=== PATIENT | female | born 1950 | race Caucasian/White ===

== ENCOUNTER → 2017-02-09 | Outpatient (CLI) | payer MEDICARE, BC ==
[2017-02-09 11:36] LABS: ALT 36 U/L (9-52); AST 29 U/L (14-36); Cholesterol 160 mg/dL (<200); HDL Cholesterol 50 mg/dL (40-60); Triglycerides 165 mg/dL (<150)
== END | disposition home or self-care (01) ==
LOC: LABWHC1 10:19
PROVIDERS: ATTEND Family Medicine
DX: E78.2 Mixed hyperlipidemia (principal)
CPT/HCPCS: 36415; 80061; 84450; 84460

== ENCOUNTER → 2017-08-03 | Outpatient (CLI) | payer MEDICARE, BC ==
[2017-08-03 10:51] LABS: ALT 50 U/L (9-52); AST 28 U/L (14-36); Alkaline Phosphatase 83 U/L (38-126); Anion Gap 10 mmol/L; Blood Urea Nitrogen 19 mg/dL (7-17); Calcium 10.9 mg/dL (8.4-10.2); Carbon Dioxide 27 mmol/L (22-30); Chloride 104 mmol/L (98-107); Glucose 102 mg/dL (74-99); Non-African American GFR(MDRD) 55 (>60 ml/min/1.73 sqM); Sodium 141 mmol/L (137-145); Total Bilirubin 0.8 mg/dL (0.2-1.3); Total Protein 7.6 g/dL (6.3-8.2)
[2017-08-03 10:59] LABS: Potassium 5.1 mmol/L (3.5-5.1)
== END | disposition home or self-care (01) ==
LOC: LABWHC1 10:02
PROVIDERS: ATTEND Internal Medicine
DX: E04.9 Nontoxic goiter, unspecified (principal); E21.0 Primary hyperparathyroidism
CPT/HCPCS: 36415; 80053; 84443

== ENCOUNTER → 2018-02-14 | Outpatient (CLI) | payer MEDICARE, BC ==
[2018-02-14 10:21] LABS: Calcium 10.9 mg/dL (8.4-10.2)
== END | disposition home or self-care (01) ==
LOC: LABWHC1 09:26
PROVIDERS: ATTEND Internal Medicine
DX: E78.2 Mixed hyperlipidemia (principal); E21.0 Primary hyperparathyroidism
CPT/HCPCS: 36415; 80061; 82310; 83970; 84450; 84460

== ENCOUNTER → 2018-08-01 | Outpatient (CLI) | payer MEDICARE, BC ==
[2018-08-01 17:11] LABS: Vitamin D 25 Hydroxy 31.7 ng/mL (30.0-100.0)
[2018-08-01 17:43] LABS: Parathyroid Hormone Intact 95.9 pg/mL (14.0-72.0)
== END | disposition home or self-care (01) ==
LOC: LABWHC1 09:14
PROVIDERS: ATTEND Internal Medicine
DX: E21.0 Primary hyperparathyroidism (principal)
CPT/HCPCS: 36415; 82306; 82310; 83970

== ENCOUNTER → 2018-08-24 | Outpatient (CLI) | payer MEDICARE, BC ==
--- NOTE | 2018-08-24 16:51 | BD ---
EXAMINATION TYPE: Axial Bone Density DATE OF EXAM: 08/24/2018 COMPARISON: 2016 CLINICAL HISTORY: E 21.0, hyperparathyroidism Height: 5'5 1/2 Weight: 250 FRAX RISK QUESTIONS: History of Fracture in Adulthood: Y Secondary Osteoporosis: RISK FACTORS HISTORY OF: Active: N Postmenopausal woman: y Hyperparathyroidism: y MEDICATIONS: Additional Medications: blood pressure, cholesterol Additional History: EXAM MEASUREMENTS: Bone mineral densitometry was performed using the [email or web address] System. Bone mineral density as measured about the Lumbar spine is: ----- L1-L4(G/cm2): 1.327 T Score Values are as follows: ----- L2: 1.2 ----- L3: 1.7 ----- L4: 2.2 ----- L1-L4:1.2 Bone mineral density has: Increased 0.1since study of: 08/03/2016 Bone mineral density about the R hip (g/cm2): 0.932 Bone mineral density about the L hip (g/cm2): 0.950 T Score values are as follows: -----R Neck: -0.8 -----L Neck: -0.7 -----R Total: 0.5 -----L Total: 1.0 Bone mineral density has: Decreased -1.5ince study of: 08/03/2016 IMPRESSION: Normal (Values between +1 and -1 indicate normal bone mass). Consider repeating this study in 5 year s or sooner if there is some new clinical indication. NOTE: T-SCORE=SD OF THE YOUNG ADULT MEAN.
--- NOTE | 2018-08-24 16:52 | BD ---
EXAMINATION TYPE: Axial Bone Density DATE OF EXAM: 08/24/2018 COMPARISON: NONE CLINICAL HISTORY: hyperparathyroidism, E 21.0 Height: 5'5 Weight: 250 FRAX RISK QUESTIONS: History of Fracture in Adulthood: y Secondary Osteoporosis: RISK FACTORS HISTORY OF: If Premenopausal, do you have irregular periods: Hyperparathyroidism: y MEDICATIONS: Additional Medications: high blood pressure, cholesterol Additional History: EXAM MEASUREMENTS: Bone mineral densitometry was performed using the [employer] System. Bone mineral density about the L Wrist (g/cm2): 0.758 T Score values are as follows: -----Dist. R+U: 1.5 -----Prox. R+U: 1.1 -----Radius total: 1.4 IMPRESSION: Normal (Values between +1 and -1 indicate normal bone mass). Consider repeating this study in 5 year s or sooner if there is some new clinical indication. NOTE: T-SCORE=SD OF THE YOUNG ADULT MEAN.
== END | disposition home or self-care (01) ==
LOC: RADBDWWP 13:09
PROVIDERS: ATTEND Internal Medicine
DX: E21.0 Primary hyperparathyroidism (principal)
CPT/HCPCS: 77080; 77081

== ENCOUNTER → 2018-08-29 | Outpatient (CLI) | payer MEDICARE, BC ==
[2018-08-29 10:59] LABS: HGB 14.9 gm/dL (11.4-16.0); MCH 30.5 pg (25.0-35.0); MCHC 33.1 g/dL (31.0-37.0); MCV 92.3 fL (80.0-100.0); Mean Platelet Volume 7.5; Platelet Count 269 k/uL (150-450); RBC 4.87 m/uL (3.80-5.40); RDW 13.6 % (11.5-15.5); WBC 6.6 k/uL (3.8-10.6)
[2018-08-29 18:18] LABS: Albumin 4.5 g/dL (3.80-4.90); Albumin/Globulin Ratio 1.96 (1.20-2.10); Anion Gap 1.4 mmol/L (4.00-12.00); Calcium 10.4 mg/dL (8.7-10.3); Carbon Dioxide 29.6 mmol/L (21.6-31.8); Globulin 2.3 g/dL (2.1-3.7); LDL Cholesterol,Calculated 74.8 mg/dL (0.0-131.0); Potassium 4.9 mmol/L (3.5-5.5); Total Bilirubin 0.8 mg/dL (0.3-1.2); Total Protein 6.8 g/dL (6.2-8.2); VLDL Calculation 28.2 mg/dL (5.00-40.00)
== END | disposition home or self-care (01) ==
LOC: LABWHC1 09:37
PROVIDERS: ATTEND Family Medicine
DX: Z00.00 Encounter for general adult medical examination without abnormal findings (principal)
CPT/HCPCS: 36415; 80053; 80061; 84443; 85027

== ENCOUNTER → 2018-10-19 | Outpatient (CLI) | payer MEDICARE, BC ==
--- NOTE | 2018-10-19 13:00 | MM ---
Reason for exam: screening (asymptomatic). Last mammogram was performed 1 year and 1 month ago. History: Patient is postmenopausal and is nulliparous. Took hormonal contraceptives for 10 years beginning at age 30. Physical Findings: A clinical breast exam by your physician is recommended on an annual basis and results should be correlated with mammographic findings. MG Screening Mammo w CAD Bilateral CC and MLO view(s) were taken. XCCL view(s) were taken of the right breast. Prior study comparison: October 01, 2017, bilateral MG screening mammo w CAD. October 16, 2015, bilateral MG screening mammo w CAD. The breast tissue is heterogeneously dense. This may lower the sensitivity of mammography. There are benign appearing round calcifications bilaterally. There is chronic nodularity in the right breast. There is no discrete abnormality. ASSESSMENT: Benign, BI-RAD 2 RECOMMENDATION: Routine screening mammogram of both breasts in 1 year.
== END | disposition home or self-care (01) ==
LOC: RADMAMWWP 07:06
PROVIDERS: ATTEND Obstetrics & Gynecology
DX: Z12.31 Encounter for screening mammogram for malignant neoplasm of breast (principal)
CPT/HCPCS: 77067

== ENCOUNTER → 2019-02-06 | Outpatient (CLI) | payer MEDICARE, BC ==
[2019-02-06 16:32] LABS: Albumin 4.4 g/dL (3.80-4.90); Anion Gap 9.5 mmol/L (4.00-12.00); Calcium 10.3 mg/dL (8.7-10.3); Carbon Dioxide 26.5 mmol/L (21.6-31.8); Globulin 2.2 g/dL (1.6-3.3); LDL Cholesterol,Calculated 78.2 mg/dL (0.0-131.0); Potassium 4.4 mmol/L (3.5-5.5); Total Bilirubin 0.7 mg/dL (0.2-1.2); Total Protein 6.6 g/dL (6.2-8.2); VLDL Calculation 26.8 mg/dL (5.00-40.00)
== END | disposition home or self-care (01) ==
LOC: LABWHC1 06:44
PROVIDERS: ATTEND Internal Medicine
DX: E04.9 Nontoxic goiter, unspecified (principal); E55.9 Vitamin D deficiency, unspecified; E21.0 Primary hyperparathyroidism; E78.2 Mixed hyperlipidemia
CPT/HCPCS: 36415; 80053; 80061; 82306; 84443

== ENCOUNTER → 2019-08-30 | Outpatient (CLI) | payer MEDICARE, BC ==
[2019-08-30 10:31] LABS: HCT 44.8 % (34.0-46.0); HGB 14.5 gm/dL (11.4-16.0); MCH 29.9 pg (25.0-35.0); MCHC 32.4 g/dL (31.0-37.0); MCV 92.4 fL (80.0-100.0); Mean Platelet Volume 6.6; Platelet Count 280 k/uL (150-450); RBC 4.85 m/uL (3.80-5.40); RDW 13.3 % (11.5-15.5)
[2019-08-30 16:14] LABS: African American GFR (CKD) 66.6 (60.0-200.0); Albumin 4.5 g/dL (3.80-4.90); Albumin/Globulin Ratio 2.14 (1.60-3.17); Anion Gap 1.9 mmol/L (4.00-12.00); Calcium 10.2 mg/dL (8.7-10.3); Carbon Dioxide 33.1 mmol/L (21.6-31.8); Chol/HDL Ratio 3.55; Globulin 2.1 g/dL (1.6-3.3); LDL Cholesterol,Calculated 78.6 mg/dL (0.0-131.0); Potassium 4.3 mmol/L (3.5-5.5); Total Bilirubin 0.8 mg/dL (0.2-1.2); Total Protein 6.6 g/dL (6.2-8.2); VLDL Calculation 28.4 mg/dL (5.00-40.00)
[2019-08-31 20:02] LABS: Hemoglobin A1C 5.8 % (4.0-6.0)
== END | disposition home or self-care (01) ==
LOC: LABWHC1 09:12
PROVIDERS: ATTEND Family Medicine
DX: Z00.00 Encounter for general adult medical examination without abnormal findings (principal); I10 Essential (primary) hypertension; E83.52 Hypercalcemia; E78.2 Mixed hyperlipidemia
CPT/HCPCS: 36415; 80053; 80061; 83036; 84443; 85027

== ENCOUNTER → 2019-11-03 | Outpatient (CLI) | payer MEDICARE, BC ==
--- NOTE | 2019-11-06 12:09 | MM ---
Reason for exam: screening (asymptomatic). Last mammogram was performed 1 year ago. History: Patient is postmenopausal and is nulliparous. Took hormonal contraceptives for 10 years beginning at age 30. Physical Findings: A clinical breast exam by your physician is recommended on an annual basis and results should be correlated with mammographic findings. MG Screening Mammo w CAD Bilateral CC and MLO view(s) were taken. Prior study comparison: October 19, 2018, bilateral MG screening mammo w CAD. October 01, 2017, bilateral MG screening mammo w CAD. The breast tissue is heterogeneously dense. This may lower the sensitivity of mammography. No suspicious abnormality on the left breast. Right upper outer quadrant focal asymmetry at middle depth. ASSESSMENT: Incomplete: need additional imaging evaluation, BI-RAD 0 RECOMMENDATION: Special view mammogram of the right breast. (3D) If lesion persists on supplemental views, image directed ultrasound is recommended. [facility] will attempt to contact patient to return for supplemental views and ultrasound if indicated.
== END | disposition home or self-care (01) ==
LOC: RADMAMWWP 09:24
PROVIDERS: ATTEND Obstetrics & Gynecology
DX: Z12.31 Encounter for screening mammogram for malignant neoplasm of breast (principal); R92.8 Other abnormal and inconclusive findings on diagnostic imaging of breast
CPT/HCPCS: 77067

== ENCOUNTER → 2019-11-15 | Outpatient (CLI) | payer MEDICARE, BC ==
--- NOTE | 2019-11-16 13:24 | MM ---
Reason for exam: additional evaluation requested from abnormal screening. Last mammogram was performed less than 1 month ago. History: Patient is postmenopausal and is nulliparous. Took hormonal contraceptives for 10 years beginning at age 30. Physical Findings: Nurse did not find any significant physical abnormalities on exam. MG 3D Work Up W/Cad RT Spot compression CC and spot compression MLO view(s) were taken of the right breast. Prior study comparison: November 03, 2019, bilateral MG screening mammo w CAD. October 19, 2018, bilateral MG screening mammo w CAD. The breast tissue is heterogeneously dense. This may lower the sensitivity of mammography. Finding: There is a suspicious, equal, indistinct architectural distortion located 8 cm from the nipple in the 12 o'clock upper quadrant, middle position of the right breast. New finding since November 03, 2019 and October 19, 2018. These results were verbally communicated with the patient and result sheet given to the patient on 11/15/19. ASSESSMENT: Incomplete: need additional imaging evaluation, BI-RAD 0 RECOMMENDATION: Ultrasound and ultrasound core biopsy of the right breast. (right breast inferior) (3D tomosynthesis stereotactic advised if ultrasound not possible) Called Dr. Lao's office with mammographic findings and has scheduled an appointment for the patient for 12/14/19 at 11:[address] Shabazz. Biopsy scheduled for 11/27/19 at 12:20. PRELIMINARY REPORT CALLED AND FAXED TO DR. SHABAZZ ON 11/16/19.
--- NOTE | 2019-11-16 13:26 | USB ---
Reason for exam: additional evaluation requested from abnormal screening. History: Patient is postmenopausal and is nulliparous. Took hormonal contraceptives for 10 years beginning at age 30. US Breast Workup Limited RT Right limited breast ultrasound including focal area of concern, retroareolar and axilla demonstrates a 0.3 x 0.4 x 0.2cm oval, cystic lesion at 10 o'clock, a 0.6 x 0.4 x 0.4cm oval, node at 10 o'clock, a 0.9 x 0.9 x 0.9cm irregular, lobular, hypoechoic lesion at 11 o'clock and a 1.4 x 2.2 x 1.0cm oval axilla node. These results were verbally communicated with the patient and result sheet given to the patient on 11/15/19. ASSESSMENT: Suspicious, BI-RAD 4 RECOMMENDATION: Ultrasound core biopsy of the right breast. (right breast inferior) (3D tomosynthesis stereotactic advised if ultrasound not possible) Called Dr. Lao's office with mammographic findings and has scheduled an appointment for the patient for 12/14/19 at 11:[address] Shabazz. Biopsy scheduled for 11/27/19 at 12:20. PRELIMINARY REPORT CALLED AND FAXED TO DR. SHABAZZ ON 11/16/19.
== END | disposition home or self-care (01) ==
LOC: RADMAMWWP 13:21
PROVIDERS: ATTEND Obstetrics & Gynecology
DX: R92.8 Other abnormal and inconclusive findings on diagnostic imaging of breast (principal)
CPT/HCPCS: 77065; 76642; G0279; 77061

== ENCOUNTER → 2019-11-27 | Day surgery (SDC) | payer MEDICARE, BC ==
[2019-11-27 11:47] VITALS: TEMP 98.1
[2019-11-27 12:37] VITALS: BP 141/81; PULSE 82; RESP 12
--- NOTE | 2019-11-27 13:14 | USB ---
EXAMINATION TYPE: US biopsy breast VAD RT, MG diagnostic mammo RT wo CAD DATE OF EXAM: 11/27/2019 CLINICAL HISTORY: R92.8 Abn mammogram. TECHNIQUE: Ultrasound guided core biopsy of right breast. COMPARISON: Right breast ultrasound dated 11/05/2019 FINDINGS: The procedure of ultrasound guided core biopsy was explained to the patient. Benefits, alternatives, and risks were discussed. An informed consent was then obtained. Preprocedural timeout was performed. The patient was placed in supine positioning for imaging and for the procedure. The overlying skin was prepped and draped in usual sterile fashion. 10 cc of 1% lidocaine was used as anesthetic into the skin and subcutaneous tissue up to a 0.9 cm mass at the 9:00 position in the right breast. Under ultrasound guidance, a 12-gauge vacuum assisted biopsy gun device was used to obtain 4 core samples. Following this, a ribbon-shaped biopsy marker was left in the mass. Postprocedure mammogram demonstrates the biopsy marker placed 1.6 cm anterior to the mammographic suspicious mass. The patient tolerated the procedure well without any immediate complication. The patient was kept in the radiology department for short stay after the procedure and then discharged home in stable condition. IMPRESSION: Successful, uncomplicated ultrasound guided core biopsy of a 0.9 cm mass at the 11:00 position in the right breast, full pathology results to follow. Of note the biopsy marker is located 1.6 cm anterior to the suspicious mammographic mass. If biopsy results are positive, 2 site needle localization could be considered for both the mammographic mass and the biopsy marker. If biopsy results are negative, this would be discordant and stereotactic guided biopsy would be recommended of the mammographic mass. Pathology Results: Malignant RIGHT BREAST LESION, NEEDLE CORE BIOPSIES: Adenocarcinoma, [place] grade 1, focal ALH see note. Recommendation Surgical consult of the right breast. KIERAN
== END ==
LOC: RADUSWWP 11:10
PROVIDERS: ATTEND Surgery
DX: C50.211 Malignant neoplasm of upper-inner quadrant of right female breast (principal); R92.8 Other abnormal and inconclusive findings on diagnostic imaging of breast
CPT/HCPCS: 19083; 88305; 88342; 88341; 77065; A4648; J2001

== ENCOUNTER → 2019-12-18 | Day surgery (SDC) | payer MEDICARE, BC ==
[2019-12-18 12:13] VITALS: BP 136/79; PULSE 77; RESP 16; TEMP 97.7
--- NOTE | 2019-12-18 19:09 | USB ---
EXAMINATION TYPE: US discontinued breast bx RT DATE OF EXAM: 12/18/2019 COMPARISON: 11/27/2019 and 11/15/2019 HISTORY: 69-year-old female with biopsy-proven right breast cancer referred for assessment of right a xillary lymph node. TECHNIQUE: Targeted ultrasound of the right axilla. FINDINGS: The right axilla was scanned. Elongated 2.1 x 1.1 x 0.4 cm lymph node (1.1 cm short axis, prominent b ut not enlarged) is identified. Despite slight lobulations, the cortex remains thin measuring up to 1 .9 mm thick. There is no soft tissue replacement of the fatty hilum. Biopsy is deferred. IMPRESSION: Prominent but nonenlarged right axillary lymph node, 1.1 cm short axis. Biopsy is deferred. BI-RADS 6, biopsy-proven malignancy RECOMMENDATION: 1. Appropriate surgical management for biopsy proven right breast cancer.
== END ==
LOC: RADUSWWP 11:30
PROVIDERS: ATTEND Surgery
DX: C50.911 Malignant neoplasm of unspecified site of right female breast (principal); Z53.8 Procedure and treatment not carried out for other reasons

== ENCOUNTER 2020-01-04 10:14 | Day surgery (SDC) | payer MEDICARE, BC ==
[2020-01-02 13:56] VITALS: BMI 42.9
[2020-01-04 15:50] VITALS: TEMP 97
[2020-01-04 16:14] VITALS: RESP 16
[2020-01-04 16:47] VITALS: BP 108/68; PULSE 88
== END 2020-01-04 16:57 | disposition home or self-care (01) ==
LOC: OR 10:14
PROVIDERS: ATTEND Surgery
DX: C50.911 Malignant neoplasm of unspecified site of right female breast (principal); E78.5 Hyperlipidemia, unspecified; I10 Essential (primary) hypertension; K21.9 Gastro-esophageal reflux disease without esophagitis; Z17.0 Estrogen receptor positive status [ER+]; Z79.899 Other long term (current) drug therapy; Z98.890 Other specified postprocedural states; Z79.1 Long term (current) use of non-steroidal anti-inflammatories (NSAID); Z79.82 Long term (current) use of aspirin; Z90.49 Acquired absence of other specified parts of digestive tract; Z90.89 Acquired absence of other organs; Z87.891 Personal history of nicotine dependence; Z91.09 Other allergy status, other than to drugs and biological substances; Z82.49 Family history of ischemic heart disease and other diseases of the circulatory system; Z82.5 Family history of asthma and other chronic lower respiratory diseases
CPT/HCPCS: 19301; 88342; 88307; 88341; 76098; 19281; 38792; 38525; J2250; J1644; J1100; J2405; J0690; J2001; J3010; J0330; J2704

== ENCOUNTER → 2020-04-25 | Outpatient (CLI) | payer MEDICARE, BC ==
[2020-04-25 12:06] LABS: Hemoglobin A1C 5.6 % (4.0-6.0)
== END | disposition home or self-care (01) ==
LOC: LABWHC1 07:13
PROVIDERS: ATTEND Family Medicine
DX: E78.2 Mixed hyperlipidemia (principal); R73.01 Impaired fasting glucose
CPT/HCPCS: 36415; 80061; 82947; 83036; 84450; 84460

== ENCOUNTER → 2020-08-29 | Outpatient (CLI) | payer MEDICARE, BC ==
[2020-08-29 08:04] LABS: Basophils # (A) 0.1 k/uL (0-0.2); Basophils % (A) 1 %; Eosinophils # (A) 0.2 k/uL (0-0.7); Eosinophils % (A) 3 %; HCT 47.7 % (34.0-46.0); HGB 15.1 gm/dL (11.4-16.0); Lymphocytes # (A) 1.3 k/uL (1.0-4.8); Lymphocytes % (A) 19 %; MCH 30.7 pg (25.0-35.0); MCHC 31.6 g/dL (31.0-37.0); Monocytes # (A) 0.4 k/uL (0-1.0); Monocytes % (A) 6 %; Neutrophils # (A) 4.5 k/uL (1.3-7.7); Neutrophils % (A) 67 %; Platelet Count 272 k/uL (150-450); RBC 4.91 m/uL (3.80-5.40); RDW 13.3 % (11.5-15.5); WBC 6.7 k/uL (3.8-10.6)
[2020-08-29 11:20] LABS: African American GFR (CKD) 66.1 (60.0-200.0); Albumin 4.4 g/dL (3.80-4.90); Albumin/Globulin Ratio 1.83 (1.60-3.17); Anion Gap 6.9 mmol/L (4.00-12.00); Calcium 11.1 mg/dL (8.7-10.3); Carbon Dioxide 30.1 mmol/L (21.6-31.8); Chol/HDL Ratio 3.39; Globulin 2.4 g/dL (1.6-3.3); Potassium 5.1 mmol/L (3.5-5.5); Total Bilirubin 0.8 mg/dL (0.2-1.2); Total Protein 6.8 g/dL (6.2-8.2)
[2020-08-29 15:17] LABS: Hemoglobin A1C 5.4 % (4.0-6.0)
== END | disposition home or self-care (01) ==
LOC: LABWHC1 07:03
PROVIDERS: ATTEND Family Medicine
DX: Z00.00 Encounter for general adult medical examination without abnormal findings (principal); I10 Essential (primary) hypertension; E78.2 Mixed hyperlipidemia; R73.01 Impaired fasting glucose
CPT/HCPCS: 36415; 80053; 80061; 83036; 84443; 85025; 85027

== ENCOUNTER → 2020-10-10 | Outpatient (CLI) | payer MEDICARE, BC ==
--- NOTE | 2020-10-10 16:20 | BD ---
EXAMINATION TYPE: Axial Bone Density DATE OF EXAM: 10/10/2020 COMPARISON: NONE CLINICAL HISTORY: Height: 5 FT 6 IN Weight: 234 FRAX RISK QUESTIONS: Alcohol (3 or more units per day): NO Family History (Parent hip fracture): NO Glucocorticoids (More than 3mos): NO (Ex: prednisone, prednisolone, methylprednisolone, dexamethasone, and hydrocortisone). History of Fracture in Adulthood: NO Secondary Osteoporosis: 1. Type 1 Diabetes: NO 2. Hyperthyroidism: NO 3. Menopause before 45: NO 4. Malnutrition: NO 5. Chronic liver disease: NO Rheumatoid Arthritis: NO Current Tobacco Use: NO RISK FACTORS HISTORY OF: Family History of Osteoporosis: NO Active: NO Diet low in dairy products/other sources of calcium: NO Postmenopausal woman: BETWEEN AGE 45-50 Take estrogen and/or progesterone medications: BRIEF PERIOD OF TIME UNSURE WHEN Lost more than 2 inches in height since high school: NO MEDICATIONS: Additional Medications: ARIMEDEX, LIPITOR, PRINIVIL, NORVASC, ASPIRIN, VIT D3, Additional History: BREAST CANCER RADIATION 2019 EXAM MEASUREMENTS: Bone mineral densitometry was performed using the [employer] System. Bone mineral density as measured about the Lumbar spine is: ----- L1-L4(G/cm2): 1.305 T Score Values are as follows: ----- L2: 1.0 ----- L3: 1.5 ----- L4: 1.8 ----- L1-L4: 1.0 Bone mineral density has: DECREASED -1.9 % since study of: 2017 Bone mineral density about the R hip (g/cm2): 0.874 Bone mineral density about the L hip (g/cm2): 0.914 T Score values are as follows: -----R Neck: -1.2 -----L Neck: -0.9 -----R Total: -0.1 -----L Total: 0.5 Bone mineral density has: DECREASED -6.3 % since study of: 2017 Bone mineral density about the L Wrist (g/cm2): 0.667 T Score values are as follows: -----Dist. R+U: 0.0 -----Prox. R+U: -0.2 -----Radius total: -0.1 Bone mineral density has: DECREASED -11.6 % since study of: 2018 IMPRESSION: Osteopenia (T Score between -2.5 and -1). There is slightly increased risk of fracture and the patient may be considered for treatment. Re-Screen 2-5 years. NOTE: T-SCORE=SD OF THE YOUNG ADULT MEAN.
== END | disposition home or self-care (01) ==
LOC: RADBDWWP 08:30
PROVIDERS: ATTEND Internal Medicine
DX: C50.811 Malignant neoplasm of overlapping sites of right female breast (principal); M85.80 Other specified disorders of bone density and structure, unspecified site; E21.3 Hyperparathyroidism, unspecified; Z79.890 Hormone replacement therapy
CPT/HCPCS: 77080

== ENCOUNTER → 2020-10-24 | Outpatient (CLI) | payer MEDICARE, BC ==
[2020-10-24 09:26] LABS: Ionized Calcium 5.8 mg/dL (4.5-5.3)
--- NOTE | 2020-10-29 11:55 | US ---
EXAMINATION TYPE: US thyroid st tissue head/neck DATE OF EXAM: 10/26/2020 COMPARISON: NONE CLINICAL HISTORY: E04.9 Thyroid goiter. thy nodules GLAND SIZE: Right Lobe: 5.1 x 1.6 x 1.7 cm Overall Parenchyma: heterogenous Left Lobe: 5.1 x 1.4 x 1.9 cm Overall Parenchyma: heterogeneous Isthmus Thickness: 0.3 cm NODULES RIGHT: # of nodules measured on right: 3 1. .7 X .3 x .6 cm mixed cystic and solid, hypoechoic nodule, which is wider than tall, with smooth margins, without echogenic foci. Prior size: .7 x .3 x .5 cm 2. .7 X .8 x .5 cm solid or almost completely solid, hypoechoic nodule, which is wider than tall, w ith ill-defined margins, without echogenic foci. Prior size: .5 x .3 x .4 cm 3. 1.0 X .4 x 1.5 cm solid or almost completely solid, hypoechoic nodule, which is wider than tall, with smooth margins, without echogenic foci. Prior size: 1.2 x .4 x .8 cm LEFT: # of nodules measured on left: 2 1. 1.0 X 1.0 x .5 cm cystic or almost completely cystic, anechoic nodule, which is wider than tall, with smooth margins, without echogenic foci. Prior size: .9 x .6 x .8 cm 2. .5 X .3 x .6 cm solid or almost completely solid, hypoechoic nodule, which is wider than tall, w ith smooth margins, without echogenic foci. Prior size: .5 x .3 x .5 cm ISTHMUS: # of nodules measured in the isthmus: 0 Bilateral neck scanned, no evidence of lymphadenopathy. IMPRESSION: Dominant nodule in the right lobe of the gland has decreased in size compared to prior exam, addition al follow-up to assess for stability may be performed 2017 ACR TI-RADS LEVEL: 3 *Highest TI-RADS level nodule reported
== END | disposition home or self-care (01) ==
LOC: RADUSWWP 08:13
PROVIDERS: ATTEND Internal Medicine
DX: E04.2 Nontoxic multinodular goiter (principal); E21.0 Primary hyperparathyroidism
CPT/HCPCS: 76536; 82306; 82330; 82652; 83970

== ENCOUNTER → 2020-11-06 | Outpatient (CLI) | payer MEDICARE, BC ==
--- NOTE | 2020-11-06 09:43 | MM ---
Reason for exam: additional evaluation requested from prior study. Last mammogram was performed 11 months ago. History: Patient is postmenopausal, has history of breast cancer at age 69, and is nulliparous. Malignant MG pre op needle loc RT of the right breast, January 04, 2020. Lumpectomy of the right breast, January 04, 2020. US discontinued breast bx RT of the right breast, December 18, 2019. Malignant US biopsy breast VAD RT of the right breast, November 27, 2019. Took hormonal contraceptives for 10 years beginning at age 30. Physical Findings: Nurse did not find any significant physical abnormalities on exam. MG 3D Diag Mammo W/Cad LUIS ANGEL Bilateral CC and MLO view(s) were taken. Prior study comparison: November 27, 2019, right breast MG diagnostic mammo RT wo CAD. November 15, 2019, right breast MG 3d work up w/cad RT. November 03, 2019, bilateral MG screening mammo w CAD. October 19, 2018, bilateral MG screening mammo w CAD. The breast tissue is heterogeneously dense. This may lower the sensitivity of mammography. Finding: There is skin thickening and architectural distortion in the right breast consistent with known treatment changes. There is no discrete abnormality. These results were verbally communicated with the patient and result sheet given to the patient on 11/06/20. ASSESSMENT: Benign, BI-RAD 2 RECOMMENDATION: Routine screening mammogram of both breasts in 1 year.
== END | disposition home or self-care (01) ==
LOC: RADMAMWWP 07:31
PROVIDERS: ATTEND Surgery
DX: R92.8 Other abnormal and inconclusive findings on diagnostic imaging of breast (principal)
CPT/HCPCS: 77066; G0279; 77062

== ENCOUNTER → 2021-02-26 | Outpatient (CLI) | payer MEDICARE, BC ==
[2021-02-26 12:47] LABS: Chol/HDL Ratio 3.77; LDL Cholesterol,Calculated 79.2 mg/dL (0.0-131.0); VLDL Calculation 28.8 mg/dL (5.00-40.00)
== END | disposition home or self-care (01) ==
LOC: LABWHC1 07:14
PROVIDERS: ATTEND Family Medicine
DX: E78.2 Mixed hyperlipidemia (principal)
CPT/HCPCS: 36415; 80061; 84450; 84460

== ENCOUNTER → 2021-09-04 | Outpatient (CLI) | payer MEDICARE, BC ==
[2021-09-04 16:44] LABS: HCT 43.6 % (37.2-46.3); HGB 14.1 g/dL (12.0-15.0); MCHC 32.3 g/dL (32.0-37.0); MCV 95.8 fL (80.0-97.0); Mean Platelet Volume 10.9 fL (9.5-12.2); Platelet Count 258 X 10*3/uL (140-440); RBC 4.55 X 10*6/uL (4.10-5.20); RDW 13.2 % (11.5-14.5); WBC 5.39 X 10*3/uL (4.50-10.00)
[2021-09-04 20:26] LABS: African American GFR (CKD) 70.2 (60.0-200.0); Albumin 4.5 g/dL (3.8-4.9); Albumin/Globulin Ratio 1.78 (1.60-3.17); Anion Gap 15.8 mmol/L (4.00-12.00); BUN/Creat Ratio 22.52 Ratio (12.00-20.00); Blood Urea Nitrogen 21.3 mg/dL (9.0-27.0); Calcium 10.6 mg/dL (8.7-10.3); Carbon Dioxide 21.2 mmol/L (21.6-31.8); Chol/HDL Ratio 3.19 Ratio; Globulin 2.5 g/dL (1.6-3.3); HDL Cholesterol 42.6 mg/dL (40.00-60.00); LDL Cholesterol,Calculated 68.8 mg/dL (0.0-131.0); Non-African American GFR(CKD) 60.6 (60.0-200.0); Potassium 4.4 mmol/L (3.5-5.5); Total Bilirubin 0.6 mg/dL (0.30-1.20); VLDL Calculation 24.6 mg/dL (5.00-40.00)
== END | disposition home or self-care (01) ==
LOC: LABWHC1 08:47
PROVIDERS: ATTEND Family Medicine
DX: Z00.00 Encounter for general adult medical examination without abnormal findings (principal); I10 Essential (primary) hypertension; E78.2 Mixed hyperlipidemia; E83.52 Hypercalcemia; R73.01 Impaired fasting glucose
CPT/HCPCS: 36415; 80053; 80061; 82306; 83036; 84443; 85027

== ENCOUNTER → 2021-11-17 | Outpatient (CLI) | payer MEDICARE, BC ==
--- NOTE | 2021-11-17 11:03 | MM ---
Reason for exam: additional evaluation requested from prior study. Last mammogram was performed 1 year ago. History: Patient is postmenopausal, has history of breast cancer at age 69, and is nulliparous. Malignant MG pre op needle loc RT of the right breast, January 04, 2020. Lumpectomy of the right breast, January 04, 2020. US discontinued breast bx RT of the right breast, December 18, 2019. Malignant US biopsy breast VAD RT of the right breast, November 27, 2019. Took hormonal contraceptives for 10 years beginning at age 30. Taking antineoplastic for 2 years. Physical Findings: Nurse did not find any significant physical abnormalities on exam. MG 3D Diag Mammo W/Cad LUIS ANGEL Bilateral CC and MLO view(s) were taken. Prior study comparison: November 06, 2020, bilateral MG 3d diag mammo w/cad LUIS ANGEL. November 27, 2019, right breast MG diagnostic mammo RT wo CAD. The breast tissue is heterogeneously dense. This may lower the sensitivity of mammography. Post biopsy changes right breast. No significant new findings when compared with previous films. These results were verbally communicated with the patient and result sheet given to the patient on 11/17/21. ASSESSMENT: Benign, BI-RAD 2 RECOMMENDATION: Follow-up diagnostic mammogram of both breasts in 1 year.
== END | disposition home or self-care (01) ==
LOC: RADMAMWWP 10:05
PROVIDERS: ATTEND Surgery
DX: R92.2 Inconclusive mammogram (principal); Z85.3 Personal history of malignant neoplasm of breast
CPT/HCPCS: 77066; G0279; 77062

== ENCOUNTER → 2021-12-01 | Outpatient (CLI) | payer MEDICARE, BC ==
--- NOTE | 2021-12-01 17:10 | US ---
EXAMINATION TYPE: US thyroid st tissue head/neck DATE OF EXAM: 12/01/2021 COMPARISON: 10/24/2020 CLINICAL HISTORY: 71-year-old female E04.9 GOITER. TECHNIQUE: Multiple sonographic images of the thyroid gland are obtained. FINDINGS: GLAND SIZE: Right Lobe: 4.9 x 2.0 x 2.4 cm Overall Parenchyma: heterogenous Left Lobe: 4.7 x 1.8 x 2.2 cm Overall Parenchyma: heterogeneous Isthmus Thickness: 0.5 cm NODULES RIGHT: # of nodules measured on right: 3 1. 0.7 X 0.4 x 0.6 cm, mid , solid, hypoechoic nodule, which is wider than tall, with smooth margin s, without echogenic foci. Prior size: 0.7 x 0.3 x 0.6 cm 2. 0.8 X 0.7 x 0.7 cm, mid, solid, hypoechoic nodule, which is wider than tall, with ill-defined ma rgins, without echogenic foci. Prior size: 0.7 x 0.8 x 0.5 cm 3. 1.1 X 0.4 x 0.9 cm, mid , solid, hypoechoic nodule, which is wider than tall, with smooth margin s, without echogenic foci. Prior size: 1.0 x 0.4 x 1.5 cm LEFT: # of nodules measured on left: 2 1. 1.1 X 0.6 x 1.1 cm, lower , solid, hypoechoic nodule, which is wider than tall, with smooth demetrius ins, without echogenic foci. Prior size: 1.0 x 1.0 x 0.5 cm 2. 0.9 X 0.6 x 0.9 cm, lower , solid, hypoechoic nodule, which is wider than tall, with smooth mar gins, without echogenic foci. Prior size: 0.5 x 0.3 x 0.6 cm ISTHMUS: # of nodules measured in the isthmus: 0 Bilateral neck scanned, no evidence of lymphadenopathy. IMPRESSION: 1. Multinodular goiter with TR4 nodules measuring up to 1.1 cm on either side. 2 nodules on the left are slightly larger at 1.1 x 1.1 cm (versus 1.0 x 1.0 cm, previously) and 9 x 9 mm (versus 6 x 5 mm, previously). Continued follow-up can be performed.
== END | disposition home or self-care (01) ==
LOC: RADUSWWP 14:56
PROVIDERS: ATTEND Internal Medicine
DX: E04.2 Nontoxic multinodular goiter (principal)
CPT/HCPCS: 76536

== ENCOUNTER → 2022-02-16 | Outpatient (CLI) | payer MEDICARE, BC ==
[2022-02-16 14:53] LABS: HCT 46.3 % (37.2-46.3); HGB 14.6 g/dL (12.0-15.0); MCH 30.3 pg (27.0-32.0); MCHC 31.5 g/dL (32.0-37.0); MCV 96.1 fL (80.0-97.0); Mean Platelet Volume 11.3 fL (9.5-12.2); NRBC Per 100 WBC 0 /100 WBCS (0.0-0.0); Platelet Count 242 X 10*3/uL (140-440); RBC 4.82 X 10*6/uL (4.10-5.20); RDW 13.3 % (11.5-14.5); WBC 5.82 X 10*3/uL (4.50-10.00)
[2022-02-16 17:08] LABS: ALT 33 U/L (8-44); AST 22 U/L (13-35); Chol/HDL Ratio 2.93 Ratio; Glucose 102 mg/dL (70-110)
== END | disposition home or self-care (01) ==
LOC: LABWHC1 08:53
PROVIDERS: ATTEND Family Medicine
DX: I10 Essential (primary) hypertension (principal); R73.01 Impaired fasting glucose
CPT/HCPCS: 36415; 80061; 82947; 83036; 84450; 84460; 85027

== ENCOUNTER → 2022-09-07 | Outpatient (CLI) | payer MEDICARE, BC ==
[2022-09-07 15:32] LABS: HCT 44.4 % (37.2-46.3); HGB 14.3 g/dL (12.0-15.0); MCH 30.7 pg (27.0-32.0); MCHC 32.2 g/dL (32.0-37.0); MCV 95.3 fL (80.0-97.0); NRBC Per 100 WBC 0 /100 WBCS (0.0-0.0); Platelet Count 272 X 10*3/uL (140-440); RBC 4.66 X 10*6/uL (4.10-5.20); RDW 13.2 % (11.5-14.5); WBC 5.19 X 10*3/uL (4.50-10.00)
[2022-09-07 16:33] LABS: ALT 32 U/L (8-44); AST 29 U/L (13-35); African American GFR (CKD) 65.2 (60.0-200.0); Albumin 4.6 g/dL (3.8-4.9); Albumin/Globulin Ratio 1.92 (1.60-3.17); Alkaline Phosphatase 79 U/L (41-126); Blood Urea Nitrogen 18.1 mg/dL (9.0-27.0); Calcium 10.9 mg/dL (8.7-10.3); Carbon Dioxide 25.6 mmol/L (20.0-27.5); Chloride 104 mmol/L (96-109); Globulin 2.4 g/dL (1.6-3.3); Glucose 102 mg/dL (70-110); Non-African American GFR(CKD) 56.2 (60.0-200.0); Potassium 5.1 mmol/L (3.5-5.5); Sodium 139 mmol/L (135-145)
== END | disposition home or self-care (01) ==
LOC: LABWHC1 08:02
PROVIDERS: ATTEND Family Medicine
DX: I10 Essential (primary) hypertension (principal); E78.2 Mixed hyperlipidemia; E55.9 Vitamin D deficiency, unspecified; E04.9 Nontoxic goiter, unspecified; E21.0 Primary hyperparathyroidism; R73.01 Impaired fasting glucose
CPT/HCPCS: 36415; 80053; 82306; 83970; 84443; 85027

== ENCOUNTER → 2022-10-13 | Outpatient (CLI) | payer MEDICARE, BC ==
--- NOTE | 2022-10-13 11:12 | BD ---
EXAMINATION TYPE: Axial Bone Density DATE OF EXAM: 10/13/2022 COMPARISON: 10/10/2020 CLINICAL HISTORY: 72 years year old Female. ICD-10 CODE: E21.0 PRIMARY HYPERPARATHYROIDISM Height: 65" Weight: 238.9 FRAX RISK QUESTIONS: Alcohol (3 or more units per day): NO Family History (Parent hip fracture): NO Glucocorticoids (More than 3mos): NO (Ex: prednisone, prednisolone, methylprednisolone, dexamethasone, and hydrocortisone). History of Fracture in Adulthood: YES, LEFT FINGERTIP Secondary Osteoporosis: 1. Type 1 Diabetes: NO 2. Hyperthyroidism: NO 3. Menopause before 45: NO 4. Malnutrition: NO 5. Chronic liver disease: NO Rheumatoid Arthritis: NO Current Tobacco Use: NO RISK FACTORS HISTORY OF: Hip Fracture (Right/Left): NO Spine Fracture: NO History of Wrist Fracture: NO Surgery to Spine/Hip(right/left)/Wrist (right/left): NO Family History of Osteoporosis: NO Active: NO Diet low in dairy products/other sources of calcium: YES Postmenopausal woman: YES Lost more than 2 inches in height since high school: YES Frequent falls: NO Poor Health: GOOD Hyperparathyroidism: NO Adrenal Insufficiency: NO MEDICATIONS: Additional Medications: ARIMIDEX, CHOLESTEROL MEDS, BLOOD PRESSURE MEDS, VITAMIN D3, BABY ASPIRIN, CO Q 10 Additional History: HX OF BREAST CANCER 12/2019, RADIATION THERAPY AND ARIMIDEX EXAM MEASUREMENTS: Bone mineral densitometry was performed using the [employer] System. Bone mineral density as measured about the Lumbar spine is: ----- L1-L4(G/cm2): 1.249 T Score Values are as follows: ----- L1: -1.5 ----- L2: 0.5 ----- L3: 1.0 ----- L4: 1.8 ----- L1-L4: 0.6 Bone mineral density has: DECREASED -2.8% since study of: 08/10/2020 Bone mineral density about the R hip (g/cm2): 0.820 Bone mineral density about the L hip (g/cm2): 0.886 T Score values are as follows: -----R Neck: -1.6 -----L Neck: -1.1 -----R Total: -0.6 -----L Total: 0.0 Bone mineral density has: DECREASED -5.9% since study of: 10/10/2020 Bone mineral density about the L Wrist (g/cm2): 0.616 T Score values are as follows: -----Dist. R+U: -0.1 -----Prox. R+U: -0.9 -----Radius total: -1.0 Bone mineral density has: DECREASED -7.9% since study of: 10/10/2020 FRAX%s: The graph provided illustrates a 9.6% chance for a major osteoporotic fx and a 1.5% chance fo r the hips probability for fx in 10 years time. IMPRESSION: Normal (Values between +1 and -1 indicate normal bone mass). Consider repeating this study in 5 year s or sooner if there is some new clinical indication. NOTE: T-SCORE=SD OF THE YOUNG ADULT MEAN.
== END | disposition home or self-care (01) ==
LOC: RADBDWWP 09:52
PROVIDERS: ATTEND Internal Medicine
DX: E21.0 Primary hyperparathyroidism (principal); M85.89 Other specified disorders of bone density and structure, multiple sites; Z85.3 Personal history of malignant neoplasm of breast
CPT/HCPCS: 77080

== ENCOUNTER → 2022-11-18 | Outpatient (CLI) | payer MEDICARE, BC ==
--- NOTE | 2022-11-18 11:48 | MM ---
Reason for Exam: Additional evaluation requested from prior study. Last screening mammogram was performed 12 month(s) ago. Patient History: Menarche at age 12. Patient has no children. Postmenopausal. Breast cancer, right, age 69. Hormonal Contraceptives for 10 years from age 30 until age 40. 01/04/2020, Lumpectomy on the Right side. 01/04/2020, Malignant Core Biopsy on the right side. 11/27/2019, Malignant Core Biopsy on the right side. 12/18/2019, US discontinued breast bx RT on the right side. Tissue Density: The breast tissue is heterogeneously dense. This may lower the sensitivity of mammography. Findings: Analyzed By CAD. There is some coarse calcifications in the area of prior biopsy on the right breast. Multiple vesicles are present. No new suspicious masses, consultations or distortions. Overall Assessment: Benign, BI-RAD 2 Management: Screening Mammogram of both breasts in 1 year. A clinical breast exam by your physician is recommended on an annual basis and results should be correlated with mammographic findings. This exam should not preclude additional follow-up of suspicious palpable abnormalities. Results were given to the patient verbally at the time of exam. Electronically signed and approved by: Abdias Paul DO
== END | disposition home or self-care (01) ==
LOC: RADMAMWWP 10:55
PROVIDERS: ATTEND Surgery
DX: R92.8 Other abnormal and inconclusive findings on diagnostic imaging of breast (principal); Z85.3 Personal history of malignant neoplasm of breast; Z78.0 Asymptomatic menopausal state; Z98.890 Other specified postprocedural states
CPT/HCPCS: 77066; G0279; 77062

== ENCOUNTER → 2023-01-13 | Outpatient (CLI) | payer MEDICARE, BC ==
--- NOTE | 2023-01-13 16:07 | MR ---
EXAMINATION TYPE: MR knee RT wo con DATE OF EXAM: 01/13/2023 COMPARISON: NONE HISTORY: RT KNEE PAIN AND SWELLING, IT LOCKS AND GIVES OUT. Internal arrangement per order. TECHNIQUE: Multiplanar, multisequence images of the knee is performed without IV contrast. FINDINGS: MEDIAL MENISCUS: Medial extrusion meniscus on coronal images Abnormal oblique and horizontal signal c entral body and posterior horn extends to articular surface with truncated appearance posterior horn. LATERAL MENISCUS: Anterior and posterior horns are intact without tear. CRUCIATE LIGAMENTS: The anterior and posterior cruciate ligaments are intact and unremarkable. COLLATERAL LIGAMENTS: The medial collateral ligament and lateral collateral ligament complex are inta ct. Medial bulging medial meniscus on coronal images. EXTENSOR MECHANISM: Visualized quadriceps and patellar tendons are intact. EFFUSION: Moderate size heterogeneous suprapatellar joint effusion. Underlying synovitis is suspected . POPLITEAL CYST: No popliteal/romero cyst. TRICOMPARTMENT SPACES: Moderate narrowing medial tibiofemoral compartment with large spurs medially. Mild to moderate narrowing and moderate spurring lateral tibial femoral and patellofemoral compartmen ts. CARTILAGE: Full-thickness cartilaginous loss medial tibial femoral compartment. BONE MARROW SIGNAL: There is a heterogeneous diminished T1 and increased T2 signal medial aspect of t he medial tibial femoral compartment as site of full-thickness cartilaginous loss. OTHER: No additional significant abnormality is appreciated. IMPRESSION: 1. Tricompartment degenerative changes in the right knee as detailed above. Findings are severe in th e medial tibiofemoral compartment as detailed above presumed product of severe osteoarthritis. Abnorm al bone marrow edema medial aspect of the medial tibial femoral compartment is noted. 2. Full-thickness tear of the medial meniscus involving central body and posterior horn. 3. Moderate-sized suprapatellar joint effusion with suspected underlying synovitis.
== END | disposition home or self-care (01) ==
LOC: RADMRIMAIN 11:29
PROVIDERS: ATTEND Orthopaedic Surgery
DX: M23.221 Derangement of posterior horn of medial meniscus due to old tear or injury, right knee (principal); M17.11 Unilateral primary osteoarthritis, right knee; M25.461 Effusion, right knee

== ENCOUNTER → 2023-02-17 | Outpatient (CLI) | payer MEDICARE, BC ==
[2023-02-17 15:22] LABS: ALT 30 U/L (8-44); AST 26 U/L (13-35); Chol/HDL Ratio 3.28 Ratio; LDL Cholesterol,Calculated 81.6 mg/dL (0.0-131.0)
== END | disposition home or self-care (01) ==
LOC: LABWHC1 08:17
PROVIDERS: ATTEND Family Medicine
DX: E78.2 Mixed hyperlipidemia (principal)
CPT/HCPCS: 36415; 80061; 84450; 84460

== ENCOUNTER → 2023-09-14 | Outpatient (CLI) | payer MEDICARE, BC | END | disposition home or self-care (01) | LOC: LABWHC1 08:50 | PROVIDERS: ATTEND Family Medicine | DX: Z53.9 Procedure and treatment not carried out, unspecified reason (principal) ==

== ENCOUNTER → 2023-09-14 | Outpatient (CLI) | payer MEDICARE, BC ==
[2023-09-14 15:29] LABS: HCT 45.2 % (37.2-46.3); HGB 14.4 g/dL (12.0-15.0); MCH 29.7 pg (27.0-32.0); MCHC 31.9 g/dL (32.0-37.0); MCV 93.2 FL (80.0-97.0); Mean Platelet Volume 10.7 FL (9.5-12.2); NRBC Per 100 WBC 0 X 10*3/uL (0.00-0.01); Platelet Count 280 X 10*3/uL (140-440); RBC 4.85 X 10*6/uL (4.10-5.20); RDW 13.6 % (11.5-14.5); WBC 5.34 X 10*3/uL (4.50-10.00)
[2023-09-14 15:53] LABS: ALT 33 U/L (8-44); AST 29 U/L (13-35); Albumin 4.5 g/dL (3.8-4.9); Alkaline Phosphatase 94 U/L (41-126); BUN/Creat Ratio 19.67 Ratio (12.00-20.00); Blood Urea Nitrogen 17.7 mg/dL (9.0-27.0); Calcium 11.4 mg/dL (8.7-10.3); Carbon Dioxide 26.3 mmol/L (21.6-31.8); Chloride 105 mmol/L (96-109); Chol/HDL Ratio 3.05 Ratio; Globulin 2.5 g/dL (1.6-3.3); Glucose 108 mg/dL (70-110); LDL Cholesterol,Calculated 76.7 mg/dL (0.0-131.0); Potassium 5.1 mmol/L (3.5-5.5); Sodium 142 mmol/L (135-145); Total Bilirubin 0.7 mg/dL (0.3-1.2)
== END | disposition home or self-care (01) ==
LOC: LABWHC1 08:56
PROVIDERS: ATTEND Internal Medicine
DX: E21.0 Primary hyperparathyroidism (principal); E55.9 Vitamin D deficiency, unspecified; E04.9 Nontoxic goiter, unspecified
CPT/HCPCS: 36415; 80053; 80061; 82306; 83970; 84443; 85027

== ENCOUNTER → 2023-09-15 | Outpatient (CLI) | payer MEDICARE, BC ==
[2023-09-16 12:37] LABS: Calcium 24 Hour,Urine 339.3 mg/24Hr (100.0-300.0); Creatinine 24 Hour,Urine 1.46 g/24hr (0.80-1.80)
== END | disposition home or self-care (01) ==
LOC: LABPRL 08:55
PROVIDERS: ATTEND Internal Medicine
DX: E55.9 Vitamin D deficiency, unspecified (principal); E21.0 Primary hyperparathyroidism; E04.9 Nontoxic goiter, unspecified
CPT/HCPCS: 81050; 82340; 82570

== ENCOUNTER → 2023-11-19 | Outpatient (CLI) | payer MEDICARE, BC ==
--- NOTE | 2023-11-22 20:45 | MM ---
Reason for Exam: Screening (asymptomatic). Last screening mammogram was performed 12 month(s) ago. Patient History: Menarche at age 12. Patient has no children. Postmenopausal. Breast cancer, right, age 69. Hormonal Contraceptives for 10 years from age 30 until age 40. 01/04/2020, Lumpectomy on the Right side. 01/04/2020, Malignant Core Biopsy on the right side. 11/27/2019, Malignant Core Biopsy on the right side. 12/18/2019, US discontinued breast bx RT on the right side. Prior Study Comparison: 11/06/2020 Bilateral Diagnostic Mammogram, [facility]. 11/17/2021 Bilateral Diagnostic Mammogram, [facility]. 11/18/2022 Bilateral MG 3D diag mammo w/cad LUIS ANGEL, [facility]. Tissue Density: The breast tissue is heterogeneously dense. This may lower the sensitivity of mammography. Findings: Analyzed By CAD. Postsurgical and posttreatment changes right breast with fat necrosis calcifications at the surgical site. There is no suspicious group of microcalcifications or new suspicious mass in either breast. Overall Assessment: Benign, BI-RAD 2 Management: Screening Mammogram of both breasts in 1 year. . Patient should continue monthly self-breast exams. A clinical breast exam by your physician is recommended on an annual basis. This exam should not preclude additional follow-up of suspicious palpable abnormalities. Note on Linda scores and lifetime risk: 1. A Linda score greater than 3% is considered moderate risk. If this is the case, consider specialist referral to assess eligibility for a risk reducing agent. 2. If overall lifetime risk for the development of breast cancer is 20% or higher, the patient may qualify for future screening with alternating mammogram and breast MRI. Electronically signed and approved by: Tatiana Vera M.D. Radiologist
== END | disposition home or self-care (01) ==
LOC: RADMAMWWP 10:50
PROVIDERS: ATTEND Surgery
DX: Z12.31 Encounter for screening mammogram for malignant neoplasm of breast (principal); Z78.0 Asymptomatic menopausal state; Z85.3 Personal history of malignant neoplasm of breast
CPT/HCPCS: 77063; 77067

== ENCOUNTER → 2023-12-30 | Outpatient (CLI) | payer MEDICARE, BC ==
[2023-12-30 10:11] LABS: Ionized Calcium 5.7 mg/dL (4.5-5.3)
[2023-12-30 10:14] LABS: Calcium 10.9 mg/dL (8.4-10.2)
== END | disposition home or self-care (01) ==
LOC: LABWHC1 09:23
PROVIDERS: ATTEND Internal Medicine
DX: E21.0 Primary hyperparathyroidism (principal)
CPT/HCPCS: 36415; 82310; 82330; 83970

== ENCOUNTER → 2024-03-07 | Outpatient (CLI) | payer MEDICARE, BC ==
[2024-03-07 15:18] LABS: Chol/HDL Ratio 2.95 Ratio; Glucose 107 mg/dL (70-110); LDL Cholesterol,Calculated 66.1 mg/dL (0.0-131.0)
== END | disposition home or self-care (01) ==
LOC: LABWHC1 09:34
PROVIDERS: ATTEND Family Medicine
DX: E78.2 Mixed hyperlipidemia (principal); R73.01 Impaired fasting glucose
CPT/HCPCS: 36415; 80061; 82947; 83036

== ENCOUNTER → 2024-03-29 | Outpatient (CLI) | payer MEDICARE, BC | END | disposition home or self-care (01) | LOC: LABWHC1 09:47 | PROVIDERS: ATTEND Internal Medicine | DX: E21.0 Primary hyperparathyroidism (principal) | CPT/HCPCS: 36415; 82310; 83970 ==

== ENCOUNTER → 2024-05-08 | Outpatient (CLI) | payer MEDICARE, BC ==
[2024-05-08 21:00] LABS: Anion Gap 10.5 mmol/L (4.00-12.00); Carbon Dioxide 26.5 mmol/L (21.6-31.8); Potassium 4.2 mmol/L (3.5-5.5)
== END | disposition home or self-care (01) ==
LOC: LABWHC1 13:55
PROVIDERS: ATTEND Family Medicine
DX: I10 Essential (primary) hypertension (principal)
CPT/HCPCS: 36415; 80051

== ENCOUNTER → 2024-07-06 | Outpatient (CLI) | payer MEDICARE, BC ==
[2024-07-06 16:25] LABS: Blood Urea Nitrogen 19.4 mg/dL (9.0-27.0); Carbon Dioxide 25.5 mmol/L (21.6-31.8); Chloride 102 mmol/L (96-109); Potassium 3.9 mmol/L (3.5-5.5); Sodium 138 mmol/L (135-145)
== END | disposition home or self-care (01) ==
LOC: LABWHC1 09:25
PROVIDERS: ATTEND Family Medicine
DX: I10 Essential (primary) hypertension (principal)
CPT/HCPCS: 36415; 80051; 82565; 84520

== ENCOUNTER → 2024-09-18 | Outpatient (CLI) | payer MEDICARE, BC ==
[2024-09-18 15:02] LABS: HCT 42.6 % (37.2-46.3); MCH 30.6 pg (27.0-32.0); MCHC 32.9 g/dL (32.0-37.0); Mean Platelet Volume 10.9 FL (9.5-12.2); NRBC Per 100 WBC 0 X 10*3/uL (0.00-0.01); Platelet Count 269 X 10*3/uL (140-440); RBC 4.58 X 10*6/uL (4.10-5.20); RDW 13.6 % (11.5-14.5); WBC 6.06 X 10*3/uL (4.50-10.00)
[2024-09-18 15:33] LABS: ALT 25 U/L (8-44); AST 27 U/L (13-35); Albumin 4.5 g/dL (3.8-4.9); Albumin/Globulin Ratio 1.73 Ratio (1.60-3.17); Alkaline Phosphatase 65 U/L (41-126); BUN/Creat Ratio 20.44 Ratio (12.00-20.00); Blood Urea Nitrogen 18.4 mg/dL (9.0-27.0); Calcium 10.8 mg/dL (8.7-10.3); Carbon Dioxide 26.8 mmol/L (21.6-31.8); Chloride 102 mmol/L (96-109); Chol/HDL Ratio 2.96 Ratio; Globulin 2.6 g/dL (1.6-3.3); Glucose 107 mg/dL (70-110); LDL Cholesterol,Calculated 64.7 mg/dL (0.0-131.0); Sodium 140 mmol/L (135-145); Total Bilirubin 0.5 mg/dL (0.3-1.2); Total Protein 7.1 g/dL (6.2-8.2)
== END | disposition home or self-care (01) ==
LOC: LABWHC1 08:08
PROVIDERS: ATTEND Family Medicine
DX: E78.2 Mixed hyperlipidemia (principal); R73.01 Impaired fasting glucose
CPT/HCPCS: 36415; 80053; 80061; 83036; 84443; 85027

== ENCOUNTER → 2024-11-20 | Outpatient (CLI) | payer MEDICARE, BC ==
[2024-11-20 14:25] LABS: Ionized Calcium 5.8 mg/dL (4.5-5.3)
--- NOTE | 2024-11-20 15:55 | MM ---
Reason for Exam: Screening (asymptomatic). Last screening mammogram was performed 12 month(s) ago. Patient History: Menarche at age 12. Patient has no children. Postmenopausal. Breast cancer, right, age 69. Hormonal Contraceptives for 10 years from age 30 until age 40. 01/04/2020, Lumpectomy on the Right side. 01/04/2020, Malignant Core Biopsy on the right side. 11/27/2019, Malignant Core Biopsy on the right side. 12/18/2019, US discontinued breast bx RT on the right side. Prior Study Comparison: 11/17/2021 Bilateral Diagnostic Mammogram, [facility]. 11/18/2022 Bilateral MG 3D diag mammo w/cad [facility] ANG[facility], [facility]. 11/19/2023 Bilateral MG 3D screening mammo w/cad, [facility]. Tissue Density: The breasts are heterogeneously dense, which may obscure small masses. Findings: Analyzed By CAD. Postsurgical and posttreatment changes right breast. Some progression in benign fat necrosis calcification of the right breast surgical site. There is no suspicious group of microcalcifications or new suspicious mass in either breast. Overall Assessment: Benign, BI-RAD 2 Management: Screening Mammogram of both breasts in 1 year. Patient should continue monthly self-breast exams. A clinical breast exam by your physician is recommended on an annual basis. This exam should not preclude additional follow-up of suspicious palpable abnormalities. Note on Linda scores and lifetime risk: 1. A Linda score greater than 3% is considered moderate risk. If this is the case, consider specialist referral to assess eligibility for a risk reducing agent. 2. If overall lifetime risk for the development of breast cancer is 20% or higher, the patient may qualify for future screening with alternating mammogram and breast MRI. [facility], , 11/20/2024 3:52 PM. Electronically signed and approved by: Tatiana Vera M.D. Radiologist
== END | disposition home or self-care (01) ==
LOC: RADMAMWWP 12:56
PROVIDERS: ATTEND Surgery
DX: Z12.31 Encounter for screening mammogram for malignant neoplasm of breast (principal); R92.333 Mammographic heterogeneous density, bilateral breasts; E21.0 Primary hyperparathyroidism; Z78.0 Asymptomatic menopausal state; Z85.3 Personal history of malignant neoplasm of breast
CPT/HCPCS: 77063; 77067; 82306; 82330; 83970

== ENCOUNTER → 2024-11-21 | Outpatient (CLI) | payer MEDICARE, BC ==
--- NOTE | 2024-11-21 16:31 | US ---
EXAMINATION TYPE: US thyroid st tissue head/neck DATE OF EXAM: 11/21/2024 COMPARISON: 12/01/21 CLINICAL INDICATION: Female, 74 years old with history of E069 GOITER; goiter TECHNIQUE: Grayscale and color Doppler imaging of the thyroid gland. FINDINGS: GLAND SIZE: Right Lobe: 4.9 x 1.9 x 1.5 cm Overall Parenchyma: homogeneous Left Lobe: 5.1 x 2.1 x 1.6 cm Overall Parenchyma: homogeneous Isthmus Thickness: 0.4 cm NODULES RIGHT: # of nodules measured on right: 3 1. 0.7 X 0.7 x 0.4 cm, mid mid, Prior size: 0.7 x 0.6 x 0.4 cm TIRADS Score: 4 TIRADS Category 4: Composition: Solid or almost completely solid (2 points). Echogenicity: Hypoechoic (2 points). Shape: Wider than tall (0 points). Margin: Smooth (0 points). Echogenic foci: None or large comet-tail artifacts (0 points) Recommendation: If >1.5cm: FNA; If >1cm: Follow up at 1,2, 3,5 years 2. 0.7 X 0.9 x 0.5 cm, lower mid, Prior size: 0.8 x 0.7 x 0.7 cm TIRADS Score: 4 TIRADS Category 4: Composition: Solid or almost completely solid (2 points). Echogenicity: Hypoechoic (2 points). Shape: Wider than tall (0 points). Margin: Smooth (0 points). Echogenic foci: None or large comet-tail artifacts (0 points) Recommendation: If >1.5cm: FNA; If >1cm: Follow up at 1,2, 3,5 years 3. 1.3 X 0.9 x 0.5 cm, mid medial, Prior size: 1.1 x 0.9 x 0.4 cm TIRADS Score: 4 TIRADS Category 4: Composition: Solid or almost completely solid (2 points). Echogenicity: Hypoechoic (2 points). Shape: Wider than tall (0 points). Margin: Smooth (0 points). Echogenic foci: None or large comet-tail artifacts (0 points) Recommendation: If >1.5cm: FNA; If >1cm: Follow up at 1,2, 3,5 years LEFT: # of nodules measured on left: 2 1. 1.1 X 0.9 x 0.6 cm, mid mid, Prior size: 0.9 x 0.9 x 0.6 cm TIRADS Score: 4 TIRADS Category 4: Composition: Solid or almost completely solid (2 points). Echogenicity: Hypoechoic (2 points). Shape: Wider than tall (0 points). Margin: Smooth (0 points). Echogenic foci: None or large comet-tail artifacts (0 points) Recommendation: If >1.5cm: FNA; If >1cm: Follow up at 1,2, 3,5 years 2. 1.1 X 1.0 x 0.6 cm, lower medial, Prior size: 1.1 x 0.6 x 1.1 cm TIRADS Score: 4 TIRADS Category 4: Composition: Solid or almost completely solid (2 points). Echogenicity: Hypoechoic (2 points). Shape: Wider than tall (0 points). Margin: Smooth (0 points). Echogenic foci: None or large comet-tail artifacts (0 points) Recommendation: If >1.5cm: FNA; If >1cm: Follow up at 1,2, 3,5 years ISTHMUS: # of nodules measured in the isthmus: 0 Bilateral neck scanned, no evidence of lymphadenopathy. IMPRESSION: Bilateral thyroid nodules that meet criteria for follow-up. [facility], , 11/21/2024 4:29 PM
--- NOTE | 2024-11-22 12:55 | BD ---
EXAMINATION TYPE: Axial Bone Density DATE OF EXAM: 11/21/2024 CLINICAL HISTORY: 74 years old Female. ICD-10 CODE: E21.0 PRIMARY HYPERPARATHYROIDISM , Additional H istory: Height: 65.5 in Weight: 253 lbs EXAM MEASUREMENTS: Bone mineral densitometry was performed using the [employer]. Bone mineral density as measured about the Lumbar spine is: ----- L1-L4(G/cm2): 1.208 T Score Values are as follows: ----- L1: -1.3 ----- L2: 0.4 ----- L3: 0.6 ----- L4: 0.7 ----- L1-L4: 0.2 Z Score Values are as follows: ----- L1: -0.7 ----- L2: 0.9 ----- L3: 1.1 ----- L4: 1.2 ----- L1-L4: 0.8 Bone mineral density has: Decreased -3.3% since study of: 10/13/2022 Bone mineral density about the R hip (g/cm2): 0.895 Bone mineral density about the L hip (g/cm2): 0.996 T Score values are as follows: -----R Neck: -1.8 -----L Neck: -1.4 -----R Total: -0.9 -----L Total: -0.1 Z Score values are as follows: -----R Neck: -0.7 -----L Neck: -0.2 -----R Total: 0.0 -----L Total: 0.8 Bone mineral density has: Decreased -2.7% since study of: 10/13/2022 Bone mineral density about the L Wrist (g/cm2): 0.576 T Score values are as follows: -----Dist. R+U: -0.7 -----Prox. R+U: -1.2 -----Radius total: -1.6 Z Score values are as follows: -----Dist. R+U: 1.5 -----Prox. R+U: 1.0 -----Radius total: 0.6 Bone mineral density has: Decreased -3.1% since study of: 10/13/2022 FRAX%s: The graph provided illustrates a 10.7% chance for a major osteoporotic fx and a 2.3% chance f or the hips probability for fx in 10 years time. IMPRESSION: Osteopenia (T Score between -2.5 and -1). There is slightly increased risk of fracture and the patient may be considered for treatment. Re-Screen 2-5 years. NOTE: T-SCORE=SD OF THE YOUNG ADULT MEAN. [facility], , 11/22/2024 12:53 PM
== END | disposition home or self-care (01) ==
LOC: RADBDWWP 15:18
PROVIDERS: ATTEND Internal Medicine
DX: E21.0 Primary hyperparathyroidism (principal); E04.2 Nontoxic multinodular goiter
CPT/HCPCS: 76536; 77080

== ENCOUNTER → 2024-11-28 | Outpatient (CLI) | payer MEDICARE, BC ==
[2024-11-29 07:49] LABS: Calcium 24 Hour,Urine 283.8 mg/24Hr (100.0-300.0); Creatinine 24 Hour,Urine 1.54 g/24hr (0.80-1.80)
== END | disposition home or self-care (01) ==
LOC: LABPRL 08:52
PROVIDERS: ATTEND Internal Medicine
DX: E21.0 Primary hyperparathyroidism (principal)
CPT/HCPCS: 81050; 82340; 82570

== ENCOUNTER → 2025-02-28 | Outpatient (CLI) | payer MEDICARE, BC | END | disposition home or self-care (01) | LOC: LABWHC1 09:52 | PROVIDERS: ATTEND Family Medicine | DX: R73.01 Impaired fasting glucose (principal) | CPT/HCPCS: 36415; 82947; 83036 ==